=== PATIENT | male | born 1940 | race Caucasian/White ===

== ENCOUNTER → 2017-12-12 | Outpatient (CLI) | payer MEDICARE ==
--- NOTE | 2017-12-13 09:32 | US ---
EXAMINATION TYPE: US abdomen complete DATE OF EXAM: 12/12/2017 COMPARISON: NONE CLINICAL HISTORY: R10.9 Abdominal Pain. Intermittent abdomen discomfort x couple years, history of ch olecystectomy. EXAM MEASUREMENTS: Liver Length: 15.8 cm Gallbladder Wall: surgically absent cm CBD: 0.6 cm Spleen: 12.2 cm Right Kidney: 9.0 x 4.8 x 4.6 cm Left Kidney: 10.7 x 5.9 x 5.6 cm Imaging is performed over the right lower quadrant which appears unremarkable. The appendix is not id entified. Cinical management of any suspected appendicitis will be required. Pancreas: obscured by overlying midline bowel gas Liver: visualized portions wnl, scanned intercostally, limited by rib shadowing Gallbladder: surgically absent Evidence for sonographic Tipton's sign: no CBD: wnl Spleen: visualized portions wnl, limited by overlying bowel gas Right Kidney: visualized portions wnl, inferior pole obscured by overlying bowel gas Left Kidney: wnl Upper IVC: wnl Abd Aorta: visualized portions wnl, proximal portion obscured by overlying midline bowel gas IMPRESSION: 1. Exam limited due to excessive bowel gas. 2. Visualized portions of the abdomen are negative by ultrasound. 3. Right lower quadrant is unremarkable.
== END | disposition home or self-care (01) ==
LOC: RADUSWWP 15:21
PROVIDERS: ATTEND Family Medicine
DX: R10.9 Unspecified abdominal pain (principal)
CPT/HCPCS: 76700

== ENCOUNTER → 2017-12-17 | Outpatient (CLI) | payer MEDICARE, OTHER ==
--- NOTE | 2017-12-17 19:42 | CT ---
EXAMINATION TYPE: CT abdomen pelvis wo con DATE OF EXAM: 12/17/2017 COMPARISON: None HISTORY: Right lower quadrant abdominal pain. CT DLP: 1029 mGycm Automated exposure control for dose reduction was used. TECHNIQUE: Helical acquisition of images was performed from the lung bases through the pelvis. FINDINGS: Lung bases are clear. There is no pleural effusion. There is small hiatal hernia. Heart size is charis l. Liver spleen pancreas appear normal. Bile ducts are not dilated. There is no adrenal mass. Kidneys jimenez ve normal size and contour. There is no hydronephrosis. Abdominal aorta is atheromatous. There are di verticula in the sigmoid colon. Bladder distends smoothly. Prostate is enlarged. There is no intestin al wall thickening. There are no dilated loops. Appendix appears normal. There is no retroperitoneal adenopathy. Lumbar spine is intact. IMPRESSION: HIATAL HERNIA. ATHEROSCLEROTIC VASCULAR DISEASE. MILD SIGMOID DIVERTICULOSIS. NORMAL APPENDIX.
== END | disposition home or self-care (01) ==
LOC: RADCTMAIN 19:04
PROVIDERS: ATTEND Family Medicine
DX: K44.9 Diaphragmatic hernia without obstruction or gangrene (principal); K57.30 Diverticulosis of large intestine without perforation or abscess without bleeding; I70.0 Atherosclerosis of aorta; R10.9 Unspecified abdominal pain
CPT/HCPCS: 74176

== ENCOUNTER → 2022-12-19 | Outpatient (CLI) | payer MEDICARE ==
[2022-12-19 12:34] LABS: HCT 39.2 % (39.0-53.0); HGB 13.2 gm/dL (13.0-17.5); MCH 34.7 pg (25.0-35.0); MCHC 33.6 g/dL (31.0-37.0); MCV 103.2 fL (80.0-100.0); Macrocytosis Slight; Platelet Count 194 k/uL (150-450); RDW 12.3 % (11.5-15.5); WBC 5.3 k/uL (3.8-10.6)
[2022-12-19 12:49] LABS: ALT 25 U/L (4-49); AST 32 U/L (17-59); African American GFR (CKD) 84 (>60 ml/min/1.73 sqM); Albumin 4.1 g/dL (3.5-5.0); Albumin/Globulin Ratio 1.2; Alkaline Phosphatase 66 U/L (38-126); Anion Gap 10 mmol/L; Blood Urea Nitrogen 19 mg/dL (9-20); C Reactive Protein <0.5 mg/dL (<1.0); Calcium 9.5 mg/dL (8.4-10.2); Carbon Dioxide 23 mmol/L (22-30); Chloride 98 mmol/L (98-107); Globulin 3.5 g/dL; Glucose 107 mg/dL (74-99); Non-African American GFR(CKD) 73 (>60 ml/min/1.73 sqM); Potassium 4.4 mmol/L (3.5-5.1); Sodium 131 mmol/L (137-145); Total Bilirubin 0.9 mg/dL (0.2-1.3); Total Protein 7.6 g/dL (6.3-8.2)
[2022-12-19 13:50] LABS: Erythrocyte Sedimentation Rate 11 mm/hr (0-15)
--- NOTE | 2022-12-19 14:27 | CT ---
EXAMINATION TYPE: CT abdomen pelvis w con DATE OF EXAM: 12/19/2022 COMPARISON: 12/17/2017 HISTORY: RLQ PAIN CT DLP: 1257.10 mGycm CONTRAST: CT scan of the abdomen and pelvis is performed with Oral Contrast and with IV Contrast, patient injec bernie with 100 mL of Isovue 300. FINDINGS: LUNG BASES-: No visible nodule. No infiltrate. LIVER/GB: Gallbladder is surgically absent. No space occupying hepatic lesion. Biliary tree is of normal caliber. PANCREAS: No inflammation. No distinct mass. SPLEEN: No splenic enlargement. No lesion seen. ADRENALS: No nodule. No thickening. KIDNEYS/BLADDER: No hydronephrosis. No nephrolithiasis. No distinct renal mass. There is mild urin isaias bladder wall thickening. Correlate for cystitis. BOWEL: Visualization of the appendix. No definite right lower quadrant inflammatory changes seen perkins elaine. Normal bowel caliber. No inflammation. GENITAL ORGANS: No gross abnormality. LYMPH NODES: No greater than 1cm abdominal or pelvic lymph nodes are appreciated. AORTA: No significant abnormality. OSSEOUS STRUCTURES: No significant abnormality is seen. OTHER: No significant additional abnormality is seen. IMPRESSION: 1. Correlate for urinary bladder cystitis. Otherwise unremarkable study.
== END | disposition home or self-care (01) ==
LOC: RADCTMAIN 11:53
PROVIDERS: ATTEND Family Medicine
DX: R10.31 Right lower quadrant pain (principal)
CPT/HCPCS: 80053; 85652; 85027; 86140; 74177; 36415; Q9967

== ENCOUNTER → 2023-12-18 | Outpatient (CLI) | payer MEDICARE ==
--- NOTE | 2023-12-18 14:58 | US ---
EXAMINATION TYPE: US liver DATE OF EXAM: 12/18/2023 COMPARISON: US & CT CLINICAL INDICATION: Male, 83 years old with history of R10.11 RIGHT UPPER QUADRANT PAIN; Pt states R UQ pain TECHNIQUE: Multiple sonographic images of the right upper quadrant are obtained. FINDINGS: EXAM MEASUREMENTS: Liver Length: 15.8 cm CBD: 0.6 cm Right Kidney: 9.7 x 4.6 x 4.6 cm FRYER LINE HELPER NOTES: Pancreas: Obscured by bowel gas Liver: Visualized mostly intercostally, visualized portions appeared wnl Gallbladder: Surgically absent Evidence for sonographic Tipton's sign: No CBD: wnl Right Kidney: No evidence of hydronephrosis or nephrolithiasis IMPRESSION: No acute process.
== END | disposition home or self-care (01) ==
LOC: RADUSWWP 08:37
PROVIDERS: ATTEND Family Medicine
DX: R10.11 Right upper quadrant pain (principal)
CPT/HCPCS: 76705

== ENCOUNTER → 2023-12-26 | Outpatient (CLI) | payer MEDICARE ==
--- NOTE | 2023-12-26 12:48 | CT ---
EXAMINATION TYPE: CT chest wo con DATE OF EXAM: 12/26/2023 COMPARISON: None HISTORY: 83-year-old male R93.89 abnormal findings of the chest TECHNIQUE: Contiguous axial scanning of the chest without IV contrast. Coronal/sagittal reconstructio ns performed. CT DLP: 403.90mGycm. Automatic exposure control utilized for a dose reduction. FINDINGS: The heart is normal size with trace pericardial fluid. Dense mitral annular calcifications are presen t. Extensive LAD and lesser degree of RCA and circumflex coronary artery calcifications. Mild to mode rate aortic valve calcifications. Ectatic ascending aorta at 3.5 cm. Scattered mild to moderate atherosclerotic calcifications througho ut the thoracic aorta with conventional arch vessel branching anatomy. Ectatic upper descending thora cic aorta 3.2 cm. Mildly enlarged caliber main right and left pulmonary arteries measuring up to 2.8 cm may reflect und erlying pulmonary hypertension. Scattered nonenlarged mediastinal lymph nodes are present. No thoracic lymphadenopathy by CT size cri teria. Lungs show minimal subpleural reticular change at the lung bases. 4 mm right lower lobe pulmonary nodule can be reassessed in 12 months. 6 mm subpleural pulmonary nodule lateral left base, axial image 50. 5 mm left lower lobe pulmonary nodule, axial image 32. 3 mm lingular pulmonary nodule, axial image 32. 2 mm anterior left upper lobe pulmonary nodule, axial image 25 and 26. Visualized upper abdomen shows small hiatal hernia, ingested debris distending the stomach, and moder ate stool burden. No consolidation or pleural effusion. Bones: Moderate degenerative disc disease L1-L2. IMPRESSION: 1. A few scattered pulmonary nodules measuring up to 6 mm. 6 month follow-up CT chest to reassess. 2. Possible minimal or early interstitial scarring/fibrosis at the posterior costophrenic angles. The re may be underlying pulmonary arterial hypertension as well. 3. Dense mitral annular calcifications. Extensive LAD coronary artery calcifications. Upper 4 small hiatal hernia. [facility], , 12/26/2023 12:46 PM
== END | disposition home or self-care (01) ==
LOC: RADCTMAIN 12:00
PROVIDERS: ATTEND Family Medicine
DX: R93.89 Abnormal findings on diagnostic imaging of other specified body structures
CPT/HCPCS: 71250

== ENCOUNTER → 2024-10-20 | Outpatient (CLI) | payer MEDICARE ==
[2024-10-20 16:54] LABS: ALT 42 U/L (4-49); African American GFR (CKD) >90 (>60 ml/min/1.73 sqM); Albumin 4.2 g/dL (3.5-5.0); Albumin/Globulin Ratio 1.4; Anion Gap 9 mmol/L; Blood Urea Nitrogen 15 mg/dL (9-20); Calcium 9.8 mg/dL (8.4-10.2); Carbon Dioxide 25 mmol/L (22-30); Chloride 95 mmol/L (98-107); Globulin 3.0 g/dL; Glucose 102 mg/dL (74-99); Non-African American GFR(CKD) 79 (>60 ml/min/1.73 sqM); Sodium 129 mmol/L (137-145); Total Protein 7.2 g/dL (6.3-8.2)
[2024-10-20 16:55] LABS: Basophils # (A) 0.04 10*3/uL (0.00-0.10); Basophils % (A) 0.6 %; Eosinophils # (A) 0.09 10*3/uL (0.04-0.35); Eosinophils % (A) 1.3 %; HCT 38.6 % (39.6-50.0); HGB 13.5 g/dL (13.0-17.0); Lymphocytes # (A) 1.67 10*3/uL (0.90-5.00); Lymphocytes % (A) 24.4 %; MCH 34.9 pg (27.0-32.0); MCHC 35.0 g/dL (32.0-37.0); MCV 99.7 fL (80.0-97.0); Monocytes # (A) 0.56 10*3/uL (0.20-1.00); Monocytes % (A) 8.2 %; Neutrophils # (A) 4.47 10*3/uL (1.80-7.70); Neutrophils % (A) 65.2 %; Platelet Count 250 10*3/uL (140-440); RBC 3.87 10*6/uL (4.40-5.60); RDW 12.4 % (11.5-14.5); WBC 6.85 10*3/uL (4.50-10.00)
[2024-10-20 17:07] LABS: AST 38 U/L (17-59); Alkaline Phosphatase 79 U/L (38-126); Potassium 5.1 mmol/L (3.5-5.1)
--- NOTE | 2024-10-20 18:11 | CT ---
EXAMINATION TYPE: CT abdomen pelvis w con DATE OF EXAM: 10/20/2024 5:38 PM COMPARISON: 01/01/2023 CLINICAL INDICATION: Male, 84 years old with history of R10.31 RIGHT LOWER QUADRANT PAIN; right lower quadrant pain TECHNIQUE: Axial CT abdomen pelvis w con;Sagittal and coronal reformats were created on a separate w orkstation. Contrast used:100 ml mL of Isovue 300 with IV Contrast, (none if empty) Oral contrast used: without Oral Contrast (none if empty) CT DLP: 1595 mGycm, Automated exposure control for dose reduction was used. FINDINGS: LOWER CHEST: Moderate to severe desiccation is of aortic valve. Moderate coronary artery atherosclero sis. Small hiatal hernia. ABDOMEN LIVER: Unremarkable GALLBLADDER AND BILE DUCTS: The gallbladder is surgically absent. PANCREAS: Unremarkable. SPLEEN: Unremarkable. ADRENAL GLANDS: Unremarkable. KIDNEYS AND URETERS: No evidence of hydronephrosis or obstructing renal calculus. The ureters are unr emarkable. PELVIS BLADDER: No evidence for wall thickening or mass given limitations of exam. REPRODUCTIVE: Prostate is enlarged in size measuring 5.0 cm in transverse dimension. ABDOMEN & PELVIS STOMACH AND BOWEL: No evidence of bowel obstruction. Large stool burden in the right colon. Scattered colonic diverticula present. PERITONEUM/RETROPERITONEUM: No evidence of pneumoperitoneum or free fluid. VASCULATURE: No evidence of aortic aneurysm. MUSCULOSKELETAL: No acute osseous abnormalities. Severe disc degeneration changes are present through out the thoracolumbar spine. No foraminal stenosis worse at multiple levels with moderate to severe a t L4-L5. Transitional S1 vertebrae present. LYMPH NODES: No gross evidence for lymphadenopathy. SOFT TISSUE/ABDOMINAL WALL: Bilateral fat-containing inguinal hernias. IMPRESSION: 1. Large stool burden in the right colon otherwise, No evidence for acute right lower quadrant proce ss. The appendix appears within normal limits. No obstructive uropathy or renal calculus. 2. Fat-containing bilateral inguinal hernias. 3. Prostatomegaly, correlate with serum PSA. 4. Colonic diverticulosis. 5. Small hiatal hernia. 6. Moderate aortic valve calcifications. [facility], , 10/20/2024 6:09 PM
== END | disposition home or self-care (01) ==
LOC: RADCTMAIN 16:12
PROVIDERS: ATTEND Physician Assistant
DX: N40.0 Benign prostatic hyperplasia without lower urinary tract symptoms (principal); K57.30 Diverticulosis of large intestine without perforation or abscess without bleeding; K44.9 Diaphragmatic hernia without obstruction or gangrene; K40.20 Bilateral inguinal hernia, without obstruction or gangrene, not specified as recurrent; I70.0 Atherosclerosis of aorta
CPT/HCPCS: 80053; 85025; 74177; 36415; Q9967